=== PATIENT | female | born 1960 | race Caucasian/White ===

== ENCOUNTER 2022-04-03 19:06 | Emergency (ER) | payer BC, OTHER ==
[~2022-04-03] VITALS: Ht 160 cm; Wt 111.1 kg
[2022-04-03 20:05] VITALS: BP_SYST 152
[2022-04-03] MEDS ORDERED: NACL 0.9% 1,000 ML IV ONE (20:45)
[2022-04-03 21:01] LABS: BASOPHILS # (AUTO) 0.1 K/uL (0.0-0.2); BASOPHILS % (AUTO) 1.2 % (0.0-2.0); EOSINOPHILS # (AUTO) 0.1 K/uL (0.0-0.4); EOSINOPHILS % (AUTO) 1.7 % (0.0-4.0); HEMATOCRIT 39.5 % (36-48); HEMOGLOBIN 13.4 g/dL (12.0-16.0); LYMPHOCYTES # (AUTO) 2.2 K/uL (1.0-5.5); MEAN CORPUSCULAR HEMOGLOBIN 29 pg (27-31); MEAN CORPUSCULAR HGB CONC 34 % (32-36); MEAN CORPUSCULAR VOLUME 85 fL (79.0-98.0); MONOCYTES # (AUTO) 0.5 K/uL (0.0-1.0); MONOCYTES % (AUTO) 7.5 % (1.7-9.3); NEUTROPHILS # (AUTO) 3.8 K/uL (1.8-7.7); NEUTROPHILS % (AUTO) 56.6 % (40.0-70.0); PLATELET COUNT (AUTO) 230 K/uL (130-430); RED BLOOD CELL COUNT(AUTO) 4.67 MIL/uL (4.2-6.2); RED CELL DISTRIBUTION WIDTH 14.4 % (9.0-15.0); WHITE BLOOD COUNT (AUTO) 6.7 K/uL (4.8-10.8)
[2022-04-03 21:04] LABS: CALCIUM 9.2 mg/dL (8.4-11.0); CREATININE 0.92 mg/dL (0.55-1.30); POTASSIUM 3.9 mmol/L (3.5-5.1)
[2022-04-03 21:11] LABS: ALBUMIN 3.4 g/dL (3.4-4.8); TOTAL BILIRUBIN 0.4 mg/dL (0.0-1.0)
--- NOTE | 2022-04-03 21:39 | NUR ---
Patient to ER bed 04 to gown for evaluation. Side rails up. Report given to JUANA CARLOS
[2022-04-03] MEDS ORDERED: ONDANSETRON HCL 4 MG/2 ML VIAL IVP ONE (22:15)
[2022-04-03] MEDS ORDERED: KETOROLAC TROMETHAMINE 30 MG VIAL IVP ONE (22:15)
[2022-04-03] MEDS ORDERED: MORPHINE 4 MG INJ. 4 MG/ML VIAL IM ONE (23:15)
[2022-04-03] MEDS ORDERED: MORPHINE 4 MG INJ. 4 MG/ML VIAL ONE (23:28)
[2022-04-04 00:13] LABS: BILIRUBIN,URINE NEGATIVE (NEGATIVE); BLOOD, URINE NEGATIVE (NEGATIVE); CLARITY/URINE SL CLOUDY (CLEAR); COLOR,URINE YELLOW (YELLOW); GLUCOSE,URINE NEGATIVE (NEGATIVE); KETONES,URINE NEGATIVE (NEGATIVE); LEUKOCYTE ESTERASE ,URINE NEGATIVE (NEGATIVE); NITRITE, URINE POSITIVE (NEGATIVE); PROTEIN URINE NEGATIVE (NEGATIVE); UROBILINOGEN,URINE 0.2 (0.2-1.0)
[2022-04-04] MEDS ORDERED: CEPH-548 PO (00:25)
[2022-04-04] MEDS ORDERED: PHEN-726 PO (00:25)
[2022-04-04 00:26] LABS: BACTERIA,URINE MANY /HPF (None Seen); RBC,URINE 0-3 /HPF (0-3); WBC,URINE 0-3 /HPF (0-3)
[2022-04-04] MEDS ORDERED: PHENAZOPYRIDINE HCL 100 MG TABLET PO ONE (00:30)
[2022-04-04] MEDS ORDERED: cephALEXin 500 MG CAPSULE PO ONE (00:30)
[2022-04-04 01:25] VITALS: BP_SYST 133
--- NOTE | 2022-04-04 01:25 | NUR ---
Patient given written and verbal discharge instructions and verbalizes understanding. ER DR GABBIE TREJO discussed with patient the results and treatment provided. Patient in stable condition. ID arm band removed. IV catheter removed intact and dressing applied, no active bleeding. Rx of CEPHALEXIN PYRIDIUM given. Patient educated on pain management and to follow up with PMD. Pain Scale . Opportunity for questions provided and answered. Medication side effect fact sheet provided.
== END 2022-04-04 01:23 | disposition home or self-care (01) ==
LOC: SED 19:06
DX: N39.0 Urinary tract infection, site not specified (principal); I10 Essential (primary) hypertension; Z90.711 Acquired absence of uterus with remaining cervical stump; Z79.899 Other long term (current) drug therapy
CPT/HCPCS: 36415; 71045; 74176; 76376; 76830; 76857; 80053; 81000; 83690; 85025; 87086; 96361; 96374; 96375; 99285; J1885; J2270; J2405; J7030

== ENCOUNTER 2023-05-07 17:53 | Emergency (ER) | payer BC ==
[~2023-05-07] VITALS: Ht 160 cm; Wt 117.9 kg
[~2023-05-07 17:53] MED LIST: CEPH-548 PO; PHEN-726 PO
[2023-05-07 18:01] VITALS: BP_SYST 146; PULSE 80; RESP 18; TEMP 98.4; O2SAT 100
--- NOTE | 2023-05-07 18:12 | NUR ---
Patient triaged and placed in waiting room. VSS and patient appears in no acute distress at this time. Accompanied by , awaiting available bed, and MD notified of need for MSE.
--- NOTE | 2023-05-07 19:09 | NUR ---
ER Dr. BAIG at bedside examining patient.
[2023-05-07 19:26] LABS: BILIRUBIN,URINE NEGATIVE (NEGATIVE); BLOOD, URINE NEGATIVE (NEGATIVE); CLARITY/URINE CLEAR (CLEAR); COLOR,URINE YELLOW (YELLOW); GLUCOSE,URINE NEGATIVE (NEGATIVE); KETONES,URINE NEGATIVE (NEGATIVE); LEUKOCYTE ESTERASE ,URINE NEGATIVE (NEGATIVE); NITRITE, URINE NEGATIVE (NEGATIVE); PROTEIN URINE NEGATIVE (NEGATIVE); UROBILINOGEN,URINE 0.2 (0.2-1.0)
[2023-05-07 19:44] LABS: BASOPHILS # (AUTO) 0.1 K/uL (0.0-0.2); BASOPHILS % (AUTO) 0.8 % (0.0-2.0); EOSINOPHILS # (AUTO) 0.1 K/uL (0.0-0.4); EOSINOPHILS % (AUTO) 1.1 % (0.0-4.0); HEMATOCRIT 38.8 % (36-48); HEMOGLOBIN 12.6 g/dL (12.0-16.0); LYMPHOCYTES # (AUTO) 2.6 K/uL (1.0-5.5); MEAN CORPUSCULAR HEMOGLOBIN 28 pg (27-31); MEAN CORPUSCULAR HGB CONC 33 % (32-36); MEAN CORPUSCULAR VOLUME 85 fL (79.0-98.0); MONOCYTES # (AUTO) 0.9 K/uL (0.0-1.0); MONOCYTES % (AUTO) 7.5 % (1.7-9.3); NEUTROPHILS # (AUTO) 8.1 K/uL (1.8-7.7); NEUTROPHILS % (AUTO) 68.6 % (40.0-70.0); PLATELET COUNT (AUTO) 250 K/uL (130-430); RED BLOOD CELL COUNT(AUTO) 4.57 MIL/uL (4.2-6.2); RED CELL DISTRIBUTION WIDTH 14.4 % (9.0-15.0); WHITE BLOOD COUNT (AUTO) 11.8 K/uL (4.8-10.8)
--- NOTE | 2023-05-07 19:48 | NUR ---
Patient to ER bed 05 to gown for evaluation. Side rails up. Report given to TRISTIAN Wilson
[2023-05-07 19:51] LABS: CALCIUM 9.5 mg/dL (8.4-11.0); CREATININE 0.86 mg/dL (0.55-1.30)
[2023-05-07 19:56] LABS: ALBUMIN 3.4 g/dL (3.4-4.8); TOTAL BILIRUBIN 0.2 mg/dL (0.0-1.0)
[2023-05-07] MEDS ORDERED: KETOROLAC TROMETHAMINE 60 MG/2 ML VIAL IM ONE (20:00)
--- NOTE | 2023-05-07 20:00 | NUR ---
PT BIB FROM HOME, AMBULATED TO BED 5. PT A&Ox4, ABLE TO MAKE NEEDS KNOWN. PT C/O LOWER ABD PAIN x1 DAY. PT RATES PAIN 10/10. PT DESCRIBES PAIN "SPASMS THAT RADIATE TO RECTUM." PT DENIES TAKING MEDICATOIN FOR THE PAIN. PT DENIES DIFFICULTY URINATING. PT DENIES PAIN WHEN URINATING. PT DENIES V/D, SOB AND CHEST PAIN. PT DENIES FEVER AND CHILLS. SAFETY PRECAUTIONS IN PLACE.
[2023-05-07] MEDS ORDERED: SULFAMETHOXAZOLE/TRIMETHOPR DS 1 TABLET PO ONE (21:30)
[2023-05-07] MEDS ORDERED: metroNIDAZOLE 500 MG TABLET PO ONE (21:30)
[2023-05-07 21:46] VITALS: BP_SYST 151; PULSE 86; RESP 18; TEMP 98.4; O2SAT 96
[2023-05-07] MEDS ORDERED: DICL75TA5 PO (21:49)
[2023-05-07] MEDS ORDERED: METR-154 PO (21:49)
[2023-05-07] MEDS ORDERED: ONDA-8 TL (21:49)
[2023-05-07] MEDS ORDERED: SULF1TAB48 PO (21:49)
--- NOTE | 2023-05-07 21:55 | NUR ---
Patient given written and verbal discharge instructions and verbalizes understanding. ER DR BAIG discussed with patient the results and treatment provided. Patient in stable condition. ID arm band removed. IV catheter removed intact and dressing applied, no active bleeding. Rx of ZOFRAN, BACTRIM, VOLTAREN, METRONIDAZOLE given. Patient educated on pain management and to follow up with PMD. Pain Scale 0/10. Opportunity for questions provided and answered. Medication side effect fact sheet provided.
== END 2023-05-07 21:44 | disposition home or self-care (01) ==
LOC: SED 17:53
DX: K57.32 Diverticulitis of large intestine without perforation or abscess without bleeding (principal); R10.32 Left lower quadrant pain; R10.30 Lower abdominal pain, unspecified; Z79.899 Other long term (current) drug therapy
CPT/HCPCS: 99285; 74176; 76830; 76857; 80053; 83690; 85025; 36415; 76376; 96372; 81003; J1885

== ENCOUNTER 2023-09-02 19:25 | Inpatient (IN) | payer BC ==
[~2023-09-02] VITALS: Ht 160 cm; Wt 112.9 kg
[~2023-09-02 19:25] MED LIST changes: +DICL75TA5 PO; +METR-154 PO; +ONDA-8 TL; +SULF1TAB48 PO
[2023-09-02 19:31] VITALS: BP_SYST 135; PULSE 106; RESP 24; TEMP 99.3; O2SAT 96
[2023-09-02 20:37] LABS: BILIRUBIN,URINE NEGATIVE (NEGATIVE); BLOOD, URINE NEGATIVE (NEGATIVE); CLARITY/URINE CLEAR (CLEAR); COLOR,URINE YELLOW (YELLOW); GLUCOSE,URINE NEGATIVE (NEGATIVE); KETONES,URINE NEGATIVE (NEGATIVE); LEUKOCYTE ESTERASE ,URINE NEGATIVE (NEGATIVE); NITRITE, URINE NEGATIVE (NEGATIVE); PH,URINE 6.5 (5.0-8.0); PROTEIN URINE NEGATIVE (NEGATIVE); UROBILINOGEN,URINE 0.2 (0.2-1.0)
[2023-09-02 21:39] LABS: BASOPHILS # (AUTO) 0.1 K/uL (0.0-0.2); BASOPHILS % (AUTO) 0.5 % (0.0-2.0); EOSINOPHILS # (AUTO) 0.1 K/uL (0.0-0.4); EOSINOPHILS % (AUTO) 0.6 % (0.0-4.0); HEMATOCRIT 37.2 % (36-48); HEMOGLOBIN 12.3 g/dL (12.0-16.0); LYMPHOCYTES # (AUTO) 1.4 K/uL (1.0-5.5); LYMPHOCYTES % (AUTO) 12.5 % (20.5-51.5); MEAN CORPUSCULAR HEMOGLOBIN 28 pg (27-31); MEAN CORPUSCULAR HGB CONC 33 % (32-36); MEAN CORPUSCULAR VOLUME 85 fL (79.0-98.0); MONOCYTES % (AUTO) 8.8 % (1.7-9.3); NEUTROPHILS # (AUTO) 8.4 K/uL (1.8-7.7); NEUTROPHILS % (AUTO) 77.6 % (40.0-70.0); PLATELET COUNT (AUTO) 244 K/uL (130-430); RED BLOOD CELL COUNT(AUTO) 4.37 MIL/uL (4.2-6.2); RED CELL DISTRIBUTION WIDTH 14.8 % (9.0-15.0); WHITE BLOOD COUNT (AUTO) 10.8 K/uL (4.8-10.8)
[2023-09-02 21:45] LABS: CALCIUM 9.7 mg/dL (8.4-11.0); CREATININE 1.04 mg/dL (0.55-1.30); POTASSIUM 4.3 mmol/L (3.5-5.1)
[2023-09-02 21:52] LABS: ALBUMIN 3.3 g/dL (3.4-4.8); TOTAL BILIRUBIN 0.3 mg/dL (0.0-1.0)
[2023-09-02] MEDS ORDERED: MORPHINE 4 MG INJ. 4 MG/ML VIAL IVP ONE (22:15)
[2023-09-02] MEDS ORDERED: metroNIDAZOLE 500 mg/NS 100 ML IV ONE (23:15)
[2023-09-02] MEDS ORDERED: NACL 0.9% 1,500 ML IV ONE (23:15)
[2023-09-03 01:11] VITALS: BP_SYST 99; PULSE 82; RESP 20; TEMP 98.7; O2SAT 95
[2023-09-03 08:00] VITALS: BP_SYST 118; PULSE 85; RESP 18; TEMP 98.4; O2SAT 99
[2023-09-03] MEDS ORDERED: NALOXONE HCL 0.4 MG/ML AMP (NARCAN) IVP PRN (08:30)
[2023-09-03] MEDS: HYDROmorphone 1 MG/ML INJ. CARTRIDGE IVP PRN ×4 (08:53→22:57)
[2023-09-03] MEDS ORDERED: NACL 0.9% 1,000 ML IV SCH (09:30)
[2023-09-03 09:42] LABS: INR 1.1 (0.8-1.2)
[2023-09-03] MEDS ORDERED: D5/0.45 NS 500 ML IV ONE (10:00)
[2023-09-03] MEDS ORDERED: ALBUMIN HUMAN 5% 250 ML IV ONE (11:00)
[2023-09-03] MEDS: PIPERACILLIN/TAZO 3.375/DEX-IS 50 ML IV SCH ×3 (11:03→18:09)
[2023-09-03 12:00] VITALS: BP_SYST 110; PULSE 68; RESP 18; TEMP 98; O2SAT 100
[2023-09-03] MEDS ORDERED: MEROPENEM 1 GM in NS 100 ML IV SCH (14:00)
[2023-09-03 16:00] VITALS: BP_SYST 110; PULSE 68; RESP 18; TEMP 98.9; O2SAT 98
[2023-09-03 20:00] VITALS: BP_SYST 101; PULSE 88; RESP 18; TEMP 101.1; O2SAT 97
[2023-09-03] MEDS: metroNIDAZOLE 500 mg/NS 100 ML IV SCH (20:38)
[2023-09-03] MEDS: ONDANSETRON HCL 4 MG/2 ML VIAL IVP PRN (23:30)
[2023-09-04] VITALS (7 sets, daily range): BP systolic 109–124; PULSE 81–89; RESP 15–18; TEMP 98.4–99.3; O2SAT 93–97
[2023-09-04] MEDS: PIPERACILLIN/TAZO 3.375/DEX-IS 50 ML IV SCH ×4 (02:36→17:52)
[2023-09-04 05:07] LABS: BASOPHILS % (AUTO) 0.4 % (0.0-2.0); EOSINOPHILS # (AUTO) 0.1 K/uL (0.0-0.4); EOSINOPHILS % (AUTO) 1.1 % (0.0-4.0); HEMATOCRIT 34.3 % (36-48); HEMOGLOBIN 11.3 g/dL (12.0-16.0); LYMPHOCYTES # (AUTO) 1.6 K/uL (1.0-5.5); LYMPHOCYTES % (AUTO) 22.5 % (20.5-51.5); MEAN CORPUSCULAR HEMOGLOBIN 28 pg (27-31); MEAN CORPUSCULAR HGB CONC 33 % (32-36); MEAN CORPUSCULAR VOLUME 85 fL (79.0-98.0); MONOCYTES # (AUTO) 0.8 K/uL (0.0-1.0); MONOCYTES % (AUTO) 10.9 % (1.7-9.3); NEUTROPHILS # (AUTO) 4.5 K/uL (1.8-7.7); NEUTROPHILS % (AUTO) 65.1 % (40.0-70.0); PLATELET COUNT (AUTO) 243 K/uL (130-430); RED BLOOD CELL COUNT(AUTO) 4.02 MIL/uL (4.2-6.2); RED CELL DISTRIBUTION WIDTH 14.8 % (9.0-15.0); WHITE BLOOD COUNT (AUTO) 6.9 K/uL (4.8-10.8)
[2023-09-04 05:25] LABS: CALCIUM 10.1 mg/dL (8.4-11.0); CREATININE 0.83 mg/dL (0.55-1.30)
[2023-09-04] MEDS: metroNIDAZOLE 500 mg/NS 100 ML IV SCH ×2 (10:24→20:41)
[2023-09-04] MEDS: HYDROmorphone 1 MG/ML INJ. CARTRIDGE IVP PRN ×2 (10:24→20:30)
[2023-09-04] MEDS: ONDANSETRON HCL 4 MG/2 ML VIAL IVP PRN (10:24)
[2023-09-04] MEDS ORDERED: DOCUSATE SODIUM 250 MG CAPSULE PO PRN (14:15)
[2023-09-05] VITALS (7 sets, daily range): BP systolic 112–139; PULSE 81–87; RESP 15–18; TEMP 97.2–99.2; O2SAT 93–98
[2023-09-05] MEDS: PIPERACILLIN/TAZO 3.375/DEX-IS 50 ML IV SCH ×5 (00:27→23:32)
[2023-09-05] MEDS: HYDROmorphone 1 MG/ML INJ. CARTRIDGE IVP PRN (05:22)
[2023-09-05 05:28] LABS: BASOPHILS % (AUTO) 0.6 % (0.0-2.0); EOSINOPHILS # (AUTO) 0.2 K/uL (0.0-0.4); EOSINOPHILS % (AUTO) 2.7 % (0.0-4.0); HEMATOCRIT 35.9 % (36-48); HEMOGLOBIN 11.7 g/dL (12.0-16.0); LYMPHOCYTES # (AUTO) 1.7 K/uL (1.0-5.5); LYMPHOCYTES % (AUTO) 26.7 % (20.5-51.5); MEAN CORPUSCULAR HEMOGLOBIN 28 pg (27-31); MEAN CORPUSCULAR HGB CONC 33 % (32-36); MEAN CORPUSCULAR VOLUME 85 fL (79.0-98.0); MONOCYTES # (AUTO) 0.7 K/uL (0.0-1.0); MONOCYTES % (AUTO) 10.5 % (1.7-9.3); NEUTROPHILS # (AUTO) 3.7 K/uL (1.8-7.7); NEUTROPHILS % (AUTO) 59.5 % (40.0-70.0); PLATELET COUNT (AUTO) 266 K/uL (130-430); RED BLOOD CELL COUNT(AUTO) 4.21 MIL/uL (4.2-6.2); RED CELL DISTRIBUTION WIDTH 14.3 % (9.0-15.0); WHITE BLOOD COUNT (AUTO) 6.2 K/uL (4.8-10.8)
[2023-09-05 05:49] LABS: CALCIUM 10.1 mg/dL (8.4-11.0); CREATININE 0.78 mg/dL (0.55-1.30); POTASSIUM 4.2 mmol/L (3.5-5.1)
[2023-09-05] MEDS: ONDANSETRON HCL 4 MG/2 ML VIAL IVP PRN ×2 (09:08→16:22)
[2023-09-05] MEDS: metroNIDAZOLE 500 mg/NS 100 ML IV SCH ×2 (09:09→21:06)
[2023-09-06 00:25] VITALS: BP_SYST 113; PULSE 81; RESP 17; TEMP 98.9; O2SAT 95
[2023-09-06] MEDS: HYDROmorphone 1 MG/ML INJ. CARTRIDGE IVP PRN (04:34)
[2023-09-06] MEDS: PIPERACILLIN/TAZO 3.375/DEX-IS 50 ML IV SCH (06:04)
[2023-09-06] MEDS: metroNIDAZOLE 500 mg/NS 100 ML IV SCH ×2 (09:01→20:39)
[2023-09-06 11:12] VITALS: BP_SYST 117; RESP 18; TEMP 97.6
[2023-09-06 12:00] VITALS: BP_SYST 136; PULSE 80; RESP 18; TEMP 98; O2SAT 97
[2023-09-06 16:00] VITALS: BP_SYST 117; PULSE 72; RESP 18; TEMP 98.7; O2SAT 72
[2023-09-06 20:00] VITALS: BP_SYST 128; PULSE 88; RESP 18; TEMP 98.4; O2SAT 96
[2023-09-07] VITALS: BP_SYST 130; PULSE 84; RESP 18; TEMP 97.3; O2SAT 96
[2023-09-07 05:44] LABS: BASOPHILS % (AUTO) 0.6 % (0.0-2.0); EOSINOPHILS # (AUTO) 0.1 K/uL (0.0-0.4); EOSINOPHILS % (AUTO) 2.3 % (0.0-4.0); HEMATOCRIT 36.9 % (36-48); HEMOGLOBIN 12.2 g/dL (12.0-16.0); LYMPHOCYTES # (AUTO) 1.6 K/uL (1.0-5.5); LYMPHOCYTES % (AUTO) 28.2 % (20.5-51.5); MEAN CORPUSCULAR HEMOGLOBIN 28 pg (27-31); MEAN CORPUSCULAR HGB CONC 33 % (32-36); MEAN CORPUSCULAR VOLUME 85 fL (79.0-98.0); MONOCYTES # (AUTO) 0.6 K/uL (0.0-1.0); NEUTROPHILS # (AUTO) 3.3 K/uL (1.8-7.7); NEUTROPHILS % (AUTO) 57.9 % (40.0-70.0); PLATELET COUNT (AUTO) 319 K/uL (130-430); RED BLOOD CELL COUNT(AUTO) 4.36 MIL/uL (4.2-6.2); RED CELL DISTRIBUTION WIDTH 14.4 % (9.0-15.0); WHITE BLOOD COUNT (AUTO) 5.7 K/uL (4.8-10.8)
[2023-09-07 06:05] LABS: ALBUMIN 2.9 g/dL (3.4-4.8); CALCIUM 10.2 mg/dL (8.4-11.0); CREATININE 0.75 mg/dL (0.55-1.30); TOTAL BILIRUBIN 0.2 mg/dL (0.0-1.0); TOTAL PROTEIN, SERUM 6.6 g/dL (6.4-8.3)
[2023-09-07 08:00] VITALS: BP_SYST 122; RESP 18; TEMP 97.1; O2SAT 97
[2023-09-07] MEDS: metroNIDAZOLE 500 mg/NS 100 ML IV SCH (08:41)
[2023-09-07 12:58] VITALS: BP_SYST 136; RESP 16; TEMP 99.3; O2SAT 94
[2023-09-07] MEDS ORDERED: LEVO-62 PO (15:02)
[2023-09-07 16:31] VITALS: BP_SYST 133; PULSE 78; RESP 18; TEMP 98.9; O2SAT 92
[2023-09-07 16:34] VITALS: BP_SYST 133; PULSE 78; RESP 18; TEMP 98.9
[2023-09-07] MEDS: ONDANSETRON HCL 4 MG/2 ML VIAL IVP PRN (16:55)
[2023-09-07 16:57] VITALS: BP_SYST 129; PULSE 86; RESP 17; TEMP 97.8; O2SAT 97
[2023-09-07] MEDS ORDERED: METR-154 PO (16:57)
[2023-09-07] MEDS ORDERED: ONDA-8 TL (16:58)
== END 2023-09-07 17:20 | disposition home or self-care (01) | DRG 391 ==
LOC: SED 19:25 → SMU 23:51
PROVIDERS: ADMIT Specialist; ATTEND Specialist
DX: K57.20 Diverticulitis of large intestine with perforation and abscess without bleeding (principal); K65.9 Peritonitis, unspecified; Z68.41 Body mass index [BMI] 40.0-44.9, adult; E44.1 Mild protein-calorie malnutrition; E66.01 Morbid (severe) obesity due to excess calories; I10 Essential (primary) hypertension; R09.02 Hypoxemia; Z87.891 Personal history of nicotine dependence; Z90.710 Acquired absence of both cervix and uterus; Z98.84 Bariatric surgery status; Z79.899 Other long term (current) drug therapy; Z79.2 Long term (current) use of antibiotics
CPT/HCPCS: 36415; 71045; 76376; 80048; 80053; 81001; 81003; 83605; 83690; 85025; 85610-TC; 87040; 93005; 96365; 96375; 99285; J0696; J1170; J1956; J2185; J2270; J2405; J2543; J3490; J7060; P9041